=== PATIENT | male | born 1970 | race Caucasian/White ===

== ENCOUNTER 2020-11-30 20:49 | Inpatient (IN) | payer OTHER ==
[~2020-11-30] VITALS: Ht 182.9 cm; Wt 100.3 kg
[~2020-11-30 20:49] MED LIST: ALDACTONE 25MG25 MG PO; AMOX TR-K CLV1 EAC4 PO; ASPIRIN EC81 MG PO; ATORVASTATIN CA20 MG PO; CARVEDILOL3.125 MG PO; ELIQUIS5 M1 PO; FUROSEMIDE40 MG PO; LISINOPRIL5 MG PO
[2020-11-30 22:36] LABS: HEMOGLOBIN 17.9 gm/dl (14.0-17.5); RED BLOOD COUNT 6.06 M/UL (4.20-5.50); WHITE BLOOD COUNT 8.6 K/UL (4.5-11.0)
[2020-11-30 23:01] LABS: BUN/CREATININE RATIO 16 (0-10)
--- NOTE | 2020-12-01 23:44 | NUR ---
EARLIER IN SHIFT, PT SON (AKUA) CALLED FOR UPDATES AND TO CHECK ON PT CONDITION. VERBAL PERMISSION RECEIVED FROM PT. APPROPRIATE UPDATES PROVIDED TO SON WITH PT KNOWLEDGE AND CONSENT.
[2020-12-02 04:07] LABS: BUN/CREATININE RATIO 19 (0-10)
[2020-12-03 06:55] LABS: BUN/CREATININE RATIO 18 (0-10)
[2020-12-03] MEDS ORDERED: COREG3.125 MG PO (12:08)
[2020-12-04 07:01] LABS: BUN/CREATININE RATIO 17 (0-10)
[2020-12-04] MEDS ORDERED: CARVEDILOL12.5 MG PO (11:28)
[2020-12-04] MEDS ORDERED: LISINOPRIL10 MG PO (11:28)
[2020-12-04] MEDS ORDERED: ALDACTONE 25MG25 MG PO (11:28)
[2020-12-04] MEDS ORDERED: LASIX40 MG PO (11:28)
== END 2020-12-04 13:51 | disposition home or self-care (01) | DRG 292 ==
LOC: ER1 20:49 → M/S 12-01 01:52 → CDU 12-01 01:52 → M/S 12-01 04:14
PROVIDERS: Physician Assistant; Physician Assistant Medical; ADMIT Internal Medicine
PROC: B24BZZ4 Ultrasonography of Heart with Aorta, Transesophageal (ICD-10-PCS; principal; 2020-12-01)
DX: I11.0 Hypertensive heart disease with heart failure (principal); I47.2 Ventricular tachycardia; I42.0 Dilated cardiomyopathy; E78.5 Hyperlipidemia, unspecified; I50.23 Acute on chronic systolic (congestive) heart failure; Z20.822 Contact with and (suspected) exposure to COVID-19; I27.20 Pulmonary hypertension, unspecified; I07.1 Rheumatic tricuspid insufficiency; I45.10 Unspecified right bundle-branch block; I42.8 Other cardiomyopathies; Z86.711 Personal history of pulmonary embolism; Z91.14 Patient's other noncompliance with medication regimen; Z79.01 Long term (current) use of anticoagulants; Z87.442 Personal history of urinary calculi; Z82.49 Family history of ischemic heart disease and other diseases of the circulatory system; Z87.891 Personal history of nicotine dependence
CPT/HCPCS: ECHO; 0240U; 36415; 71045; 80048; 80053; 81001; 82550; 82553; 83735; 83874; 83880; 84484; 85025; 85379; 85610; 85730; 93005; 93306; 96374; 96376; 99285; G0378; J1940; Q9967

== ENCOUNTER → 2021-03-09 | Outpatient (CLI) | payer OTHER ==
[~2021-03-09] MED LIST changes: +CARVEDILOL12.5 MG PO; +COREG3.125 MG PO; +LASIX40 MG PO; +LISINOPRIL10 MG PO
== END ==
LOC: HEART 5 13:15
DX: I50.22 Chronic systolic (congestive) heart failure (principal); I08.1 Rheumatic disorders of both mitral and tricuspid valves; I27.20 Pulmonary hypertension, unspecified
CPT/HCPCS: 93306

== ENCOUNTER 2021-06-14 06:22 | Outpatient (CLI) | payer OTHER ==
[~2021-06-14] VITALS: Ht 180.3 cm; Wt 101.2 kg
[2021-06-14] MEDS ORDERED: COREG 25MG TAB25 MG PO (07:44)
[2021-06-14] MEDS ORDERED: FUROSEMIDE40 MG PO (07:44)
[2021-06-14 07:48] LABS: HEMOGLOBIN 14.7 gm/dl (14.0-17.5); RED BLOOD COUNT 4.73 M/UL (4.20-5.50); WHITE BLOOD COUNT 6.5 K/UL (4.5-11.0)
[2021-06-14 07:51] LABS: BUN/CREATININE RATIO 21 (0-10)
[2021-06-14] MEDS ORDERED: LEVOFLOXACIN750 MG PO (13:11)
[2021-06-14] MEDS ORDERED: CLINDAMYCIN HC300 MG PO (13:11)
[2021-06-14] MEDS ORDERED: HYDROCODON-ACE1 EAC4 PO (13:11)
[2021-06-15] MEDS ORDERED: LISINOPRIL10 MG PO (11:16)
== END 2021-06-15 11:25 | disposition home or self-care (01) ==
LOC: CATH 06:22 → PROG CARE 12:19 → CATH 06-15 11:25
PROVIDERS: Internal Medicine Cardiovascular Disease
DX: I11.0 Hypertensive heart disease with heart failure (principal); I50.22 Chronic systolic (congestive) heart failure; I42.0 Dilated cardiomyopathy; I45.4 Nonspecific intraventricular block; I47.2 Ventricular tachycardia; I25.10 Atherosclerotic heart disease of native coronary artery without angina pectoris; Z20.822 Contact with and (suspected) exposure to COVID-19; Z86.711 Personal history of pulmonary embolism
CPT/HCPCS: 33225; 33249; 71045; 80048; 85025; 93005; 93641; 99152; 99153; C1769; C1777; C1882; C1898; C1900; J1644; J2250; J2270; J3010; J3370; J7040; J7050; J7070; Q9965; U0002